=== PATIENT | female | born 1970 | race Caucasian/White ===

== ENCOUNTER → 2016-04-14 | Outpatient (CLI) | payer OTHER ==
[2016-04-14 19:45] LABS: FREE T4 0.84 NG/DL (0.76-1.46)
== END ==
LOC: M WUC 15:37
PROVIDERS: ATTEND Nurse Practitioner
DX: E06.3 Autoimmune thyroiditis (principal)

== ENCOUNTER → 2017-03-25 | Outpatient (CLI) | payer OTHER ==
--- NOTE | 2017-03-25 10:39 | REP ---
Right calcaneus two views: There is an Achilles spur. Mineralization is normal. There is no fracture. Subtalar joint is unremarkable. Impression: Achilles spur, otherwise negative right calcaneus. Signed by Wyatt Vicente MD 03/25/2017 10:31 A
== END ==
LOC: M WUC 10:05
PROVIDERS: ATTEND Physician Assistant
DX: M76.61 Achilles tendinitis, right leg (principal)

== ENCOUNTER → 2017-04-23 | Outpatient (CLI) | payer OTHER | LOC: M WUC 08:51 | DX: S20.212A Contusion of left front wall of thorax, initial encounter (principal); W18.30XA Fall on same level, unspecified, initial encounter; Y92.009 Unspecified place in unspecified non-institutional (private) residence as the place of occurrence of the external cause ==

== ENCOUNTER → 2017-06-20 | Outpatient (REF) | payer OTHER ==
[2017-06-20 12:21] LABS: CONTROL LINE HCG INT CTR LINE PRESENT; HCG, SERUM QUALITATIVE NEGATIVE (NEGATIVE)
[2017-06-20 12:33] LABS: PROLACTIN 8.2 NG/ML
== END ==
LOC: M LAB REF 11:44
DX: N92.0 Excessive and frequent menstruation with regular cycle (principal)

== ENCOUNTER → 2018-01-29 | Outpatient (CLI) | payer OTHER ==
[2018-01-29 20:02] LABS: FREE T4 1.05 NG/DL (0.76-1.46)
== END ==
LOC: M WUC 09:13
DX: E03.9 Hypothyroidism, unspecified (principal)
CPT/HCPCS: 84443

== ENCOUNTER → 2018-01-29 | Outpatient (CLI) | payer OTHER ==
[2018-01-29 11:52] LABS: BASO % 0.6 % (0.0-1.0); EOS # 0.1 10^3/uL (0.0-0.50); EOS % 1.1 % (0.0-3.0); HEMATOCRIT 39.5 % (36.0-47.0); HEMOGLOBIN 12.3 g/dl (12.0-15.5); IMMATURE GRANULOCYTE % 0.2 % (0-3.0); LYMPH # 1.5 10^3/uL (1.5-4.5); MEAN CORPUSCULAR HEMOGLOBIN 26.9 pg (27.0-33.0); MEAN CORPUSCULAR HGB CONC 31.1 g/dl (32.0-36.5); MEAN CORPUSCULAR VOLUME 86.4 fl (80.0-96.0); MONO # 0.4 10^3/uL (0.0-0.8); MONO % 8.2 % (0.0-5.0); NEUTROPHILS # 2.7 10^3/uL (1.8-7.7); NEUTROPHILS % 57.9 % (36.0-66.0); PLATELET COUNT, AUTOMATED 254 10^3/uL (150-450); RED BLOOD COUNT 4.57 10^6/uL (4.00-5.40); RED CELL DISTRIBUTION WIDTH 14.5 % (11.5-14.5); WHITE BLOOD COUNT 4.7 10^3/uL (4.0-10.0)
[2018-01-29 18:37] LABS: ALBUMIN 3.8 GM/DL (3.2-5.2); ALBUMIN/GLOBULIN RATIO 1.19 (1.00-1.93); ALKALINE PHOSPHATASE 73 U/L (45-117); ALT/SGPT 29 U/L (12-78); AMYLASE 30 U/L (25-115); ANION GAP 5 MEQ/L (8-16); AST/SGOT 12 U/L (7-37); BILIRUBIN,TOTAL 0.4 MG/DL (0.2-1.0); BLOOD UREA NITROGEN 15 MG/DL (7-18); CALCIUM LEVEL 9.1 MG/DL (8.5-10.1); CARBON DIOXIDE LEVEL 27 MEQ/L (21-32); CHLORIDE LEVEL 108 MEQ/L (98-107); CREATININE FOR GFR 0.74 MG/DL (0.55-1.30); GLOMERULAR FILTRATION RATE > 60.0 (>58); GLUCOSE, FASTING 80 MG/DL (70-100); LIPASE 100 U/L (73-393); POTASSIUM SERUM 4.6 MEQ/L (3.5-5.1); SODIUM LEVEL 140 MEQ/L (136-145)
== END ==
LOC: M WUC 09:09
DX: R10.11 Right upper quadrant pain (principal)

== ENCOUNTER → 2018-02-01 | Outpatient (CLI) | payer OTHER | LOC: M RAD 07:46 | DX: R10.11 Right upper quadrant pain (principal); K82.9 Disease of gallbladder, unspecified; K76.0 Fatty (change of) liver, not elsewhere classified | CPT/HCPCS: 76705 ==

== ENCOUNTER → 2018-04-15 | Outpatient (REF) | payer OTHER ==
[2018-04-15 18:02] LABS: AMYLASE 36 U/L (25-115); LIPASE 111 U/L (73-393)
== END ==
LOC: M LAB REF 17:24
PROVIDERS: ATTEND Nurse Practitioner Family
DX: R10.9 Unspecified abdominal pain (principal)

== ENCOUNTER → 2018-10-30 | Outpatient (CLI) | payer OTHER ==
--- NOTE | 2018-10-30 12:10 | REP ---
NUCLEAR GASTRIC EMPTYING SCAN: Following the oral administration of 1.1 millicuries technetium 99m sulfur colloid in two scrambled eggs at 6 ounces of water, multiple images of the upper abdomen are performed in the anterior and posterior projections for 90 minutes. At the end of 90 minutes, 82% of the ingested activity has emptied from the stomach. This yields a t-1/2 of 50 minutes, which is normal. IMPRESSION: Normal gastric emptying. Electronically Signed by Wyatt Hutrado MD 10/30/2018 01:18 P
== END ==
LOC: M RAD 08:18
PROVIDERS: ATTEND Internal Medicine Gastroenterology
DX: R10.13 Epigastric pain (principal); K44.9 Diaphragmatic hernia without obstruction or gangrene; R13.10 Dysphagia, unspecified
CPT/HCPCS: 78264; A9541

== ENCOUNTER → 2019-05-12 | Outpatient (REF) | payer OTHER | LOC: M LAB REF 19:57 | PROVIDERS: ATTEND Physician Assistant | DX: R39.15 Urgency of urination (principal) ==

== ENCOUNTER → 2020-06-07 | Outpatient (CLI) | payer OTHER ==
--- NOTE | 2020-06-07 18:36 | REP ---
INDICATION: THYROID NODULE COMPARISON: 02/23/2014 TECHNIQUE: Hurtado scale and color evaluation of the thyroid gland using the linear high frequency transducer. FINDINGS: The thyroid gland is diffusely heterogeneous. Right lobe measures 1.8 x 1.1 x 4.3 cm and includes small 6 x 4 x 6 mm upper pole nodule with punctate calcification and the previously noted hypoechoic nodules are no longer evident. The left lobe measures 4.3 x 1.5 x 1.3 cm without discrete nodule. Isthmus measures 4.1 mm in width. IMPRESSION: Previously identified hypoechoic nodules in the right lobe not identifiable on current examination. A small 6 mm nodule in the right lobe with punctate calcification is now identified and relatively nonspecific/indeterminate in appearance. <Electronically signed by Aaron Gomez > 06/07/20 0318
== END ==
LOC: M RAD 16:15
PROVIDERS: ATTEND Registered Nurse
DX: E04.1 Nontoxic single thyroid nodule (principal)

== ENCOUNTER → 2020-09-07 | Outpatient (REF) | payer OTHER | LOC: M LAB REF 19:26 | PROVIDERS: ATTEND Dermatology | DX: D23.70 Other benign neoplasm of skin of unspecified lower limb, including hip (principal) ==

== ENCOUNTER → 2020-11-04 | Outpatient (CLI) | payer OTHER ==
[~2020-11-04] MED LIST: CVS1CHW13 PO; FAMO40TA3 PO; OMEP40CA4 PO; SERT-141 PO; SYNT88TA2 PO
== END ==
LOC: M LABSMTC 09:40
PROVIDERS: ATTEND Anesthesiology
DX: Z01.812 Encounter for preprocedural laboratory examination (principal); Z20.822 Contact with and (suspected) exposure to COVID-19

== ENCOUNTER 2020-11-09 06:27 | Observation (INO) | payer OTHER ==
[2020-11-09] VITALS (7 sets, daily range): BP systolic 113–134; BP diastolic 68–78; O2SAT 94
[~2020-11-09] VITALS: Ht 162.6 cm; Wt 96.1 kg
[~2020-11-09 06:27] MED LIST changes: +HEPARIN SOD (PORCINE) 5000UNITS/ML 1ML VIAL/SYRINGE SQ ONE; +LIDOCAINE 1% MDV 20ML VIAL SQ PRN; +LR 1,000 ML IV ONE; +ceFAZolin SOD 1 GM in D5W MINI-BAG PLUS 50 ML IV ONE
[2020-11-09] MEDS ORDERED: LIDOCAINE 2% 100MG/5ML SDV (FOR ANES.) As Ordered ONE (07:18)
[2020-11-09] MEDS ORDERED: ROCURONIUM BROMIDE 50 MG/5 ML VIAL As Ordered ONE ×3 (07:18→09:48)
[2020-11-09] MEDS ORDERED: fentaNYL 250 MCG/5 ML INJECTION (J3010) As Ordered ONE (07:18)
[2020-11-09] MEDS ORDERED: propofoL 200 MG/20 ML VIAL As Ordered ONE (07:18)
[2020-11-09] MEDS ORDERED: dexameTHASONE 4 MG/ML 1ML VIAL (J1100 PER 1MG) As Ordered ONE (07:18)
[2020-11-09] MEDS ORDERED: ONDANSETRON 4MG/2ML VIAL As Ordered ONE (07:18)
[2020-11-09] MEDS ORDERED: MIDAZOLAM INJ 2MG/2ML VIAL (J2250 PER 1MG) As Ordered ONE (07:19)
[2020-11-09] MEDS ORDERED: GENTAMICIN SULF 80MG/2ML VIAL As Ordered ONE (07:20)
[2020-11-09] MEDS ORDERED: BUPIVACAINE LIPOSOME/PF 1.3% 20ML VIAL (13.3MG/ML)(EXPAREL)(C9290 PER1MG) As Ordered ONE (07:20)
[2020-11-09] MEDS ORDERED: SCOPOLAMINE 1MG TRANSDERMAL PATCH TOP ONE (07:45)
[2020-11-09] MEDS ORDERED: SCOPOLAMINE 1MG TRANSDERMAL PATCH As Ordered ONE (07:48)
[2020-11-09] MEDS ORDERED: HYDROmorphone HCL 2 MG/ML 1ML VIAL (J1170) As Ordered ONE (08:28)
[2020-11-09] MEDS ORDERED: ACETAMINOPHEN 1000MG 100ML IV BTL (OFIRMEV) (J0131 PER 10MG) As Ordered ONE (08:28)
[2020-11-09] MEDS ORDERED: SUGAMMADEX SODIUM 500 MG/5 ML VIAL (BRIDION) As Ordered ONE (08:28)
[2020-11-09] MEDS ORDERED: ePHEDrine SULFATE 25 MG/5 ML(5MG/ML) SYRINGE As Ordered ONE ×2 (08:38→08:53)
[2020-11-09] MEDS ORDERED: PHENYLephrine 500MCG 5ML (100MCG/ML) SYRINGE As Ordered ONE (09:23)
[2020-11-09] MEDS ORDERED: METOCLOPRAMIDE INJ 10MG/2ML VIAL (J2765 PER 1) As Ordered ONE (09:52)
[2020-11-09] MEDS ORDERED: LACRILUBE (AKWA TEARS) OPHTH OINT 3.5 GM As Ordered ONE (09:54)
--- NOTE | 2020-11-09 11:34 | ROOPDOC ---
[facility] Report Of Operation Report of Operation DATE OF PROCEDURE: 11/09/20 PREOPERATIVE DIAGNOSIS: Bilateral breast hypertrophy POSTOPERATIVE DIAGNOSIS: same PROCEDURE: Bilateral breast reduction. SURGEON: Dr Leyva CROWN PRESSER: none ANESTHESIA: general ESTIMATED BLOOD LOSS: 100 cc FINDINGS: Right SPECIMENS: Right breast 686 gm, Left breast 683 gm COMPLICATIONS: none REPLACED: none DRAINS: 10 mm FRANCIS x 2 POSTOPERATIVE CONDITION: stable DESCRIPTION OF PROCEDURE: This is a 50-year-old female who upper back and neck pain worsened by large breasts. Patient is wearing 42 DDD bra size. She has fa iled medical management for upper back pain. She is scheduled for bilateral breast reduction. Risks, benefits, and alternatives were discussed with the patient in detail, and she is ready to proceed. The day of surgery, she was marked in the upright position and informed consent was obtained. She measures 35 cm from sternal notch to nipple on both sides, IMF at 24 cm bilaterally. She was brought into the operating room and placed in the supine position. Preoperative antibiotics and 5000 units heparin subcutaneous were given. Sequential pneumatic stocking were placed on the lower calves. General anesthesia was induced. She was prepped and draped in the usual sterile fashion. We started our procedure on the right side. Her nipple areolar complex was outlined 42 mm in diameter, and the patient was marked according superior medial pedicle. We started our incision by scoring the nipple areolar complex area, and then dissection was continued until the inferior lateral portion of the breast was resected. Hemostasis was obtained using electrocautery. The pedicle was de- epithelialized using Miranda scissors, good perfusion to the nipple at all times. Wound was irrigated with Ancef solution. We used Exparel 6 cc for local anesthesia to infiltrate in the Pectoralis muscle as well as the breast tissue. Moody Tisseal coagulation agent applied. Than, pedicle was turned superior to its new location at 24 cm from sternal notch. The mound was re-created using conforming 0 Vicryl sutures. Pillars were closed with interrupted 3-0 Monocryl sutures. The vertical limb was 10 cm. Excess tissue inferiorly was measured and resected, creating the horizontal scar. Nipple area complex was brought into view through the new opening and sutured in place with 3-0 and 4-0 Monocryl sutures and a 5-0 plain. A 10 mm Wing-Fall drain was placed through the lateral portion of the horizontal incision. Then we turned our attention to the left side. Her nipple areolar complex was outlined 42 mm in diameter, and the patient was marked according superior medial pedicle. We started our incision by scoring the nipple areolar complex area, and then dissection was continued until the inferior lateral portion of the breast was resected. Hemostasis was obtained using electrocautery. The pedicle was de- epithelialized using Miranda scissors, good perfusion to the nipple at all times. Wound was irrigated with Ancef solution. We used Exparel 6 cc for local anesthesia to infiltrate in the Pectoralis muscle as well as the breast tissue. Moody Tisseal coagulation agent applied. Than, pedicle was turned superior to its new location at 24 cm from sternal notch. The mound was re-created using conforming 0 Vicryl sutures. Pillars were closed with interrupted 3-0 Monocryl sutures. The vertical limb was 10 cm. Excess tissue inferiorly was measured and resected, creating the horizontal scar. Nipple area complex was brought into view through the new opening and sutured in place with 3-0 and 4-0 Monocryl sutures and a 5-0 plain. A 10 mm Wing-Fall drain was placed through the lateral portion of the horizontal incision. Total Exparel use 20 cc. Resected tissue sent to pathology in two specimens right and left breast tissue. Right breast 686 grams, left breast 683 grams. Dressings were applied to vertical and horizontal incision: Prinio strips and Dermabond. Nipples areolar complex: Xeroform and a bulky dressing with a surgical bra. Patient was extubated in the operating room without difficulty and was transferred to the recovery room in stable condition. . MICHEAL LEYVA DO Nov 09, 2020 11:34
--- NOTE | 2020-11-09 11:34 | POST-OPPD ---
Postoperative Procedure Note Date Of Procedure: Nov 09, 2020 PREOPERATIVE DIAGNOSIS: Bilateral breast hypertrophy POSTOPERATIVE DIAGNOSIS: same PROCEDURE: Bilateral breast reduction. SURGEON: Dr Leyva LUMITE INJECTOR: none ANESTHESIA: general ESTIMATED BLOOD LOSS: 100 cc FINDINGS: Right SPECIMENS: Right breast 686 gm, Left breast 683 gm COMPLICATIONS: none REPLACED: none DRAINS: 10 mm FRANCIS x 2 POSTOPERATIVE CONDITION: stable MICHEAL LEYVA DO Nov 09, 2020 11:34
[2020-11-09] MEDS ORDERED: ONDANSETRON 4MG/2ML VIAL IV PRN ×2 (11:35→11:55)
[2020-11-09] MEDS ORDERED: ACETAMINOPHEN TAB 650MG DOSE (2X325MG) PO PRN (11:35)
[2020-11-09] MEDS ORDERED: fentaNYL 100 MCG/2 ML INJECTION (J3010) As Ordered ONE (11:45)
[2020-11-09] MEDS: fentaNYL 100 MCG/2 ML INJECTION (J3010) IV PRN ×4 (11:52→12:19)
[2020-11-09] MEDS ORDERED: oxyCODONE 5MG TAB PO PRN (11:55)
[2020-11-09] MEDS ORDERED: LR 1,000 ML IV SCH (11:55)
[2020-11-09] MEDS: LR 1,000 ML IV SCH (13:00)
[2020-11-09] MEDS: ceFAZolin SOD 1 GM in D5W MINI-BAG PLUS 50 ML IV SCH (15:08)
[2020-11-09] MEDS: PERCOCET 5MG/325MG TAB PO PRN ×2 (16:14→21:14)
[2020-11-10] MEDS: LR 1,000 ML IV SCH (00:31)
[2020-11-10] MEDS: ceFAZolin SOD 1 GM in D5W MINI-BAG PLUS 50 ML IV SCH ×2 (00:32→07:45)
[2020-11-10] MEDS: KETOROLAC TROMETHAMINE 10 MG TAB PO PRN ×3 (00:54→15:16)
[2020-11-10 01:45] VITALS: O2SAT 96
[2020-11-10] MEDS ORDERED: LEVOTHYROXINE 88MCG TABLET (0.088 MG) PO SCH (06:00)
[2020-11-10 10:00] VITALS: BP 120/74
--- NOTE | 2020-11-10 12:02 | IPNPDOC ---
Subjective General Date Seen: Nov 10, 2020 Subject Chief Complaint/History The patient is a 50-year-old female admitted with a reason for visit of Bilateral Breast Hypertrophy. Patient status post bilateral breast reduction. Postop day 1. Pain controlled with Toradol. Tolerating regular diet, ambulating, using the restroom without problems. Current Medications Current Medications Current Medications Medications (Trade) Dose Ordered Sig/Anthony Route PRN Reason Start Time Stop Time Status Last Admin Dose Admin Acetaminophen (Tylenol Tab) 650 mg Q6H PRN PO MILD PAIN (PS 1-4) 11/09/20 11:35 11/10/20 11:42 Cefazolin Sodium 1 gm/Dextrose 50 ml @ 100 mls/hr Q8H IV 11/09/20 16:00 11/10/20 07:45 Fentanyl Citrate (Sublimaze) 25 mcg Q5MP PRN IV PAIN LEVEL 5-10 11/09/20 11:55 11/09/20 12:19 DC 11/09/20 12:19 Ketorolac Tromethamine (ToRADol) 10 mg Q6HP PRN PO MODERATE PAIN (PS 5-7) 11/09/20 11:35 11/14/20 11:34 11/10/20 07:44 Lactated Ringer's 1,000 ml @ 75 mls/hr [id number] IV 11/09/20 11:35 11/10/20 07:28 DC 11/10/20 00:31 Lactated Ringer's 1,000 ml @ 80 mls/hr [id number] IV 11/09/20 11:55 11/09/20 13:55 DC 11/09/20 12:02 Levothyroxine Sodium (Synthroid) 88 mcg DAILY@06 PO 11/10/20 06:00 11/10/20 05:58 Lidocaine HCl (LIDOCAINE 1% MDV 20ml) 0.1 ml ONCE PRN SQ DISCOMFORT BEFORE IV START 11/09/20 06:00 Ondansetron HCl (ZOFRAN INJection) 4 mg Q4H PRN IV NAUSEA OR VOMITING 11/09/20 11:35 Ondansetron HCl (ZOFRAN INJection) 4 mg Q4HP PRN IV NAUSEA OR VOMITING 11/09/20 11:55 11/09/20 13:55 DC Oxycodone HCl (Roxicodone, Oxyir) 5 mg ASDIRECTED PRN PO PAIN LEVEL 1-4 11/09/20 11:55 11/09/20 13:55 DC 11/09/20 12:18 Oxycodone/ Acetaminophen (Percocet 5mg/ 325mg Tablet) 2 tab Q4HP PRN PO PAIN LEVEL 8-10 11/09/20 11:35 11/09/20 21:14 Allergies Coded Allergies: No Known Allergies (Unverified , 10/26/20) Objective Physical Examination Examination GENERAL APPEARANCE:Patient seen, laying in bed, awake, alert, and oriented. Comfortable, in no acute distress. SKIN: Warm and moist. BREAST: Right and left soft, non-tender incisions intact. FRANCIS drains: L20/R30cc/24 hr. NAC: Viable, warm, symmetrical, mild post-op ecchymosis, no expanding hematoma. LUNGS: Clear to auscultation bilaterally. No wheezing appreciated. HEART: No chest wall abnormalities. Regular rate and rhythm with no murmurs appreciated. ABDOMEN: Abdomen is soft, non-tender, non-distended. EXTREMITIES: No edema identified. No calf tenderness. Vital Signs Vital Signs Date Time Temp Pulse Resp B/P (MAP) Pulse Ox O2 Delivery O2 Flow Rate FiO2 11/10/20 01:45 96 BIPAP/CPAP 11/09/20 21:44 18 11/09/20 18:00 97.7 85 113/68 (83) 11/09/20 12:35 2.0 I&Os I&O- Last 24 Hours up to 6 AM 11/10/20 06:00 Intake Total 3467 ml Output Total 1200 ml Balance 2267 ml Impression Status post bilateral breast reduction. Stable for discharge. Dressings have been changed today. Continue monitoring FRANCIS drains at home, document output. We will send prescription for Toradol. Follow-up plastic surgery. Plan / VTE VTE Prophylaxis Ordered?: Yes MICHEAL LEYVA DO Nov 10, 2020 12:02
[2020-11-10] MEDS ORDERED: KETO10TAB PO (12:07)
[2020-11-10 14:00] VITALS: BP 125/79
[2020-11-10] MEDS ORDERED: PERCOCET PO (15:28)
== END 2020-11-10 15:20 | disposition home or self-care (01) ==
LOC: M SDC 06:27 → M MS5PR 11:34
PROVIDERS: ADMIT Plastic Surgery Surgery of the Hand; ATTEND Plastic Surgery Surgery of the Hand
DX: N62 Hypertrophy of breast (principal); M54.6 Pain in thoracic spine
CPT/HCPCS: 19318; 81025; 88305; 96365; 96366; 96376; C9290; J0131; J0690; J1100; J1170; J1580; J1644; J2250; J2370; J2405; J2765; J3010

== ENCOUNTER → 2021-02-10 | Outpatient (CLI) | payer OTHER ==
[~2021-02-10] MED LIST changes: -HEPARIN SOD (PORCINE) 5000UNITS/ML 1ML VIAL/SYRINGE SQ ONE; +KETO10TAB PO; -LIDOCAINE 1% MDV 20ML VIAL SQ PRN; -LR 1,000 ML IV ONE; +PERCOCET PO; -ceFAZolin SOD 1 GM in D5W MINI-BAG PLUS 50 ML IV ONE
== END ==
LOC: M LABSMTC 10:39
PROVIDERS: ATTEND Family Medicine
DX: Z11.52 Encounter for screening for COVID-19 (principal)

== ENCOUNTER → 2021-10-31 | Outpatient (CLI) | payer OTHER | LOC: M WUC 11:57 | PROVIDERS: ATTEND Registered Nurse | DX: R07.1 Chest pain on breathing (principal) ==

== ENCOUNTER → 2022-01-26 | Outpatient (CLI) | payer OTHER | LOC: M WUC 10:01 | PROVIDERS: ATTEND Allergy & Immunology Allergy | DX: T78.1XXA Other adverse food reactions, not elsewhere classified, initial encounter (principal) ==

== ENCOUNTER → 2022-04-07 | Outpatient (CLI) | payer OTHER | LOC: M WUC 14:31 | PROVIDERS: ATTEND Physician Assistant Medical | DX: M79.603 Pain in arm, unspecified (principal); R53.1 Weakness ==

== ENCOUNTER → 2022-06-19 | Outpatient (CLI) | payer OTHER ==
[~2022-06-19] MED LIST changes: +GASTROGRAFIN SOLUTION 30ML As Ordered ONE; +ISOVUE-370 76% 100ML VIAL As Ordered ONE
== END ==
LOC: M RAD 15:51
PROVIDERS: ATTEND Internal Medicine
DX: R10.9 Unspecified abdominal pain (principal)

== ENCOUNTER → 2022-08-18 | Outpatient (REF) | payer OTHER ==
[~2022-08-18] MED LIST changes: -GASTROGRAFIN SOLUTION 30ML As Ordered ONE; -ISOVUE-370 76% 100ML VIAL As Ordered ONE
[2022-08-18 18:24] LABS: C REACTIVE PROTEIN QUANTITATIV 1.9 MG/DL (<1.0)
[2022-08-18 18:25] LABS: RHEUMATOID FACTOR QUANT 6.9 IU/ML (<14)
[2022-08-21 18:11] LABS: ANTINUCLEAR ANTIBODIES DIRECT Negative (Negative); CYCLIC CITRULLINATED PEPTIDE 7 units (0-19)
== END ==
LOC: M LAB REF 16:37
PROVIDERS: ATTEND Nurse Practitioner Family
DX: R53.83 Other fatigue (principal); M25.50 Pain in unspecified joint; E06.3 Autoimmune thyroiditis

== ENCOUNTER → 2022-10-03 | Outpatient (CLI) | payer OTHER | LOC: M RAD 12:43 | PROVIDERS: ATTEND Physician Assistant Medical | DX: E04.1 Nontoxic single thyroid nodule (principal) ==

== ENCOUNTER → 2023-10-18 | Outpatient (REF) | payer OTHER | LOC: M LAB REF 16:08 | PROVIDERS: ATTEND Physician Assistant Medical | DX: E06.3 Autoimmune thyroiditis (principal); E03.9 Hypothyroidism, unspecified ==

== ENCOUNTER → 2023-10-19 | Outpatient (CLI) | payer OTHER | LOC: M WUC 15:05 | PROVIDERS: ATTEND Physician Assistant Medical | DX: M19.072 Primary osteoarthritis, left ankle and foot (principal); M77.32 Calcaneal spur, left foot; M79.89 Other specified soft tissue disorders ==

== ENCOUNTER 2023-10-29 13:06 | Emergency (ER) | payer OTHER ==
[~2023-10-29] VITALS: Ht 165.1 cm; Wt 110.5 kg
[2023-10-29 13:14] VITALS: BP 171/78; TEMP 98.7; O2SAT 97
[2023-10-29] MEDS ORDERED: ISOVUE-370 76% 100ML VIAL As Ordered ONE (15:46)
[2023-10-29 15:48] LABS: BASO % 0.3 % (0.0-1.0); EOS # 0.1 10^3/uL (0.0-0.5); EOS % 0.8 % (0.0-3.0); HEMOGLOBIN 12.9 g/dl (12.0-15.5); LYMPH # 1.2 10^3/uL (1.5-5.0); LYMPH % 19.9 % (24.0-44.0); MEAN CORPUSCULAR HEMOGLOBIN 28.3 pg (27.0-33.0); MEAN CORPUSCULAR HGB CONC 32.3 g/dl (32.0-36.5); MEAN CORPUSCULAR VOLUME 87.7 fl (80.0-96.0); MONO # 0.3 10^3/uL (0.0-0.8); MONO % 5.2 % (2.0-8.0); NEUTROPHILS # 4.4 10^3/uL (1.5-8.5); NEUTROPHILS % 73.5 % (36.0-66.0); PLATELET COUNT, AUTOMATED 246 10^3/uL (150-450); RED BLOOD COUNT 4.56 10^6/uL (4.00-5.40)
[2023-10-29 16:05] LABS: INR 1.01; PARTIAL THROMBOPLASTIN TIME 27.5 SECONDS (24.8-34.2)
[2023-10-29 16:13] LABS: CK-MB VALUE MASS < 1.0 NG/ML (<3.6)
[2023-10-29 16:19] LABS: CPK CREATINE PHOSPHOKINASE 63 U/L (34-145); MB/CK RELATIVE INDEX 1.58 (< OR =4)
[2023-10-29] MEDS: ACETAMINOPHEN 325 MG TAB PO ONE (16:35)
[2023-10-29] MEDS ORDERED: HYDR-3713 PO (17:05)
[2023-10-29] MEDS ORDERED: IBUP-1022 PO (17:05)
[2023-10-29] MEDS: KETOROLAC 30 MG/ML 1ML VIAL IV ONE (17:15)
== END 2023-10-29 17:28 | disposition home or self-care (01) ==
LOC: EDBD 13:06 → M ED 13:06
DX: S20.219A Contusion of unspecified front wall of thorax, initial encounter (principal); R94.31 Abnormal electrocardiogram [ECG] [EKG]; R91.1 Solitary pulmonary nodule; Y92.410 Unspecified street and highway as the place of occurrence of the external cause; Y93.9 Activity, unspecified; Y99.9 Unspecified external cause status; V49.40XA Driver injured in collision with unspecified motor vehicles in traffic accident, initial encounter; Z79.1 Long term (current) use of non-steroidal anti-inflammatories (NSAID); Z79.899 Other long term (current) drug therapy
CPT/HCPCS: 71046; 71275; 80047; 82550; 82553; 84484; 85025; 85610; 85730; 86850; 86900; 86901; 93005; 93041; 94760; 96374; 99284; J1885; Q9967

== ENCOUNTER → 2023-11-19 | Outpatient (CLI) | payer OTHER ==
[~2023-11-19] MED LIST changes: +HYDR-3713 PO; +IBUP-1022 PO
== END ==
LOC: M WUC 15:38
PROVIDERS: ATTEND Physician Assistant Medical
DX: R07.82 Intercostal pain (principal); M54.9 Dorsalgia, unspecified